=== PATIENT | male | born 1995 ===

== ENCOUNTER 2017-10-05 17:11 | Emergency (ER) | payer BC ==
--- NOTE | 2017-10-05 20:21 | UC ---
Throat Pain/Nasal David HPI - HPI Summary HPI Summary: Sore throat for 1 day wants to be sure he does not have strep or flu - History of Current Complaint Chief Complaint: UCRespiratory Stated Complaint: SORE THROAT Time Seen by Provider: 10/05/17 20:20 Hx Obtained From: Patient Onset/Duration: Sudden Onset Severity: Moderate Pain Intensity: 4 Cough: None Associated Signs & Symptoms: Positive: Negative - Allergies/Home Medications Allergies/Adverse Reactions: Allergies Allergy/AdvReac Type Severity Reaction Status Date / Time No Known Allergies Allergy Verified 10/05/17 17:57 Home Medications: Home Medications Dextromethorphan-Phenylephrine [Day Time Multi-Symptom Co 10-5-325 mg] 1 cap PO 10/05/17 [History] Fexofenadine (NF) [Mariela 180 (NF)] 180 mg PO 10/05/17 [History] Naproxen Sodium [Naproxen Sodium 220 mg] 220 mg PO 10/05/17 [History] PMH/Surg Hx/FS Hx/Imm Hx Previously Healthy: Yes - Surgical History Surgical History: None - Family History Known Family History: Positive: None - Social History Occupation: Student Lives: With Family Alcohol Use: None Substance Use Type: None Smoking Status (MU): Never Smoked Tobacco Review of Systems Constitutional: Negative Skin: Negative Eyes: Negative ENT: Sore Throat Respiratory: Negative Cardiovascular: Negative Gastrointestinal: Negative Genitourinary: Negative Motor: Negative Neurovascular: Negative Musculoskeletal: Negative Neurological: Negative Psychological: Negative Is Patient Immunocompromised?: No All Other Systems Reviewed And Are Negative: Yes Physical Exam Triage Information Reviewed: Yes Appearance: Well-Appearing, No Pain Distress, Well-Nourished Vital Signs: Initial Vital Signs Temp 99.0 F 10/05/17 17:53 Pulse 74 10/05/17 17:53 Resp 18 10/05/17 17:53 BP 116/79 10/05/17 17:53 Pulse Ox 100 10/05/17 17:53 Vital Signs Reviewed: Yes Eye Exam: Normal Eyes: Positive: Conjunctiva Clear ENT Exam: Normal ENT: Positive: Normal ENT inspection, Hearing grossly normal, Pharynx normal, TMs normal, Uvula midline. Negative: Nasal congestion, Nasal drainage, Tonsillar swelling, Tonsillar exudate, Muffled voice, Hoarse voice, Dental tenderness, Sinus tenderness Dental Exam: Normal Neck exam: Normal Neck: Positive: Supple, Nontender, No Lymphadenopathy Respiratory Exam: Normal Respiratory: Positive: Chest non-tender, Lungs clear, Normal breath sounds, No respiratory distress, No accessory muscle use Cardiovascular Exam: Normal Cardiovascular: Positive: RRR, No Murmur, Pulses Normal, Brisk Capillary Refill Musculoskeletal Exam: Normal Musculoskeletal: Positive: Strength Intact, ROM Intact, No Edema Neurological Exam: Normal Neurological: Positive: Alert, Muscle Tone Normal Psychological Exam: Normal Skin Exam: Normal Diagnostics - Laboratory Diagnostic Studies Completed/Ordered: Influenza A/b (-), RST (-) Throat Pain/Nasal Course/Dx - Course Assessment/Plan: Increase fluids rest tylnol/ibuprofen for pain OTC medications for symptom relief follow with [facility] as needed - Differential Dx/Diagnosis Provider Diagnoses: Viral Syndrome Discharge - Discharge Plan Condition: Stable Disposition: HOME Patient Education Materials: Pharyngitis (ED), Viral Syndrome (ED) Referrals: [facility] - Melvin KNIGHT [Primary Care Provider] - If Needed
[2017-10-05 20:33] VITALS: BP 110/82
== END 2017-10-05 20:56 | disposition home or self-care (01) ==
LOC: UCEAST 17:11
DX: B34.9 Viral infection, unspecified (principal)
CPT/HCPCS: 87502; 87651; 99202; G0463